=== PATIENT | male | born 1965 | race African-American/Black ===

== ENCOUNTER 2024-10-11 19:04 | Emergency (ER) | payer SELFPAY ==
[~2024-10-11] VITALS: Ht 165.1 cm; Wt 66.0 kg
[2024-10-11 19:08] VITALS: O2SAT 100
[2024-10-11] MEDS ORDERED: IBUPROFEN 600MG TABLET PO STA (20:51)
[2024-10-11] MEDS ORDERED: ACETAMINOPHEN 325MG TABLET PO STA (20:51)
[2024-10-11 22:23] LABS: BASOPHILS % 0.2 % (0.0-2.0); EOSINOPHILS % 1.4 % (0.0-5.0); HEMATOCRIT. 45.3 % (42.0-52.0); HEMOGLOBIN. 15.2 g/dL (14.0-18.0); LYMPHOCYTES % 34.2 % (20.0-50.0); MEAN CORPUSCULAR HEMOGLOBIN 30.3 pg (28.0-32.0); MEAN CORPUSCULAR HGB CONC 33.6 g/dL (31.0-37.0); MEAN CORPUSCULAR VOLUME 90.1 fL (80.0-94.0); MEAN PLATELET VOLUME 8.2 fl (7.4-10.4); MONOCYTES % 3.3 % (2.0-8.0); NEUTROPHILS % 60.9 % (40.0-76.0); PLATELET 302 x1000/uL (130-400); RED BLOOD CELL COUNT 5.03 mill/uL (4.7-6.1); RED CELL DISTRIBUTION WIDTH 13.7 % (11.6-14.6); WHITE BLOOD COUNT 9.3 x1000/uL (4.5-11.0)
[2024-10-11 22:32] LABS: CHLORIDE 106 mEq/L (98-107); POTASSIUM 4.1 mEq/L (3.5-5.1); SODIUM 139 mEq/L (136-145)
[2024-10-11 22:33] LABS: CALCIUM 10.3 mg/dL (8.7-10.4); CARBON DIOXIDE 27 mEq/L (21-32)
[2024-10-11 22:38] LABS: CREATININE 0.9 mg/dL (0.6-1.3); GLUCOSE 118 mg/dL (70-105); UREA NITROGEN BLOOD 9 mg/dL (9-23)
[2024-10-11 22:40] LABS: TROPONIN I HIGH SENSITIVITY < 4 ng/L (3.0-53)
[2024-10-11] MEDS: IBUPROFEN 600MG TABLET PO NR (23:08)
[2024-10-11] MEDS: ACETAMINOPHEN 325MG TABLET PO NR (23:09)
[2024-10-12 00:12] LABS: TROPONIN I HIGH SENSITIVITY < 4 ng/L (3.0-53)
[2024-10-12] MEDS ORDERED: IBUP-2029 MT (00:15)
[2024-10-12 00:32] VITALS: BP 122/80; PULSE 87; RESP 16; TEMP 36.78072; O2SAT 99
== END 2024-10-12 00:33 | disposition home or self-care (01) ==
LOC: ER 19:04
DX: R07.89 Other chest pain (principal); E78.00 Pure hypercholesterolemia, unspecified
CPT/HCPCS: 36415; 71045; 80048; 84484; 85025; 93005; 99285